=== PATIENT | male | born 1995 | race Caucasian/White ===

== ENCOUNTER → 2016-07-06 | Outpatient (CLI) | payer OTHER ==
--- NOTE | 2016-07-06 18:05 | CT ---
CT Chest, Without Contrast Indication: Follow up pulmonary nodule detected on outside CT of the abdomen in [place]. Technique: Standard CT of the chest utilizing 5-mm collimated slices through the thorax. Dose reduc tion techniques were utilized. Comparison: Outside reported imaging have not been provided for correlation. Findings: Three noncalcified pulmonary nodules are scattered throughout the lingula and left lower l obe. The largest in the lateral segment left lower lobe on image #201 of series #4 measures 0.8 x 0. 6 cm. The nodule has densities ranging between -16 and 70 Hounsfield units suggesting this may repre sent a small pulmonary hamartoma. The 2nd round 0.3 cm noncalcified nodule resides in the posterior segment on image #164 of series #4 and the triangular-shaped lingular nodule on image 161 measures 0. 3 x 0.2 cm. A benign 0.1cm calcified granuloma is present along the minor fissure on image #130 of series #4. Th e lungs are otherwise well aerated and clear. The heart size is normal. No pericardial or pleural effusion. No enlarged lymph node. The imaged p ortions of the upper abdomen is negative. No bone lesions. Impression: Three probably benign noncalcified pulmonary nodules in the left lower lobe and lingula. The largest, measuring 0.8 cm in diameter, may represent a pulmonary hamartoma. Recommend acquirin g outside imaging from [place] for comparison. If the nodules are unchanged upon comparison, ghassan mmend follow-up noncontrast chest CT in 6 months and at 2 years post the initial scan.
== END ==
LOC: FIMAGING 15:57
PROVIDERS: ATTEND Internal Medicine
DX: R91.1 Solitary pulmonary nodule (principal)